=== PATIENT | male | born 1930 | race Asian ===

== ENCOUNTER 2018-05-11 07:53 | Inpatient (IN) | payer OTHER ==
[2018-05-11] MEDS: SOD CHLORIDE 0.9% 1,000 ML IV (08:32)
[2018-05-11 08:39] LABS: ADD MAN DIFF? NO
[2018-05-11 08:41] LABS: WHITE BLOOD COUNT 9.3 10^3/ul (4.8-10.8)
[2018-05-11 08:41] LABS: BASOPHILS % 0.2 % (0.0-2.0); EOSINOPHILS % 0.4 % (0.0-7.0); HEMATOCRIT 30.7 % (42.0-52.0); HEMOGLOBIN 9.9 g/dl (14.0-18.0); LYMPHOCYTES # 1.2 10^3/ul (0.8-2.9); LYMPHOCYTES % 13.1 % (15.0-51.0); MEAN CORPUSCULAR HEMOGLOBIN 27.2 pg (29.0-33.0); MEAN CORPUSCULAR HGB CONC 32.2 g/dl (32.0-37.0); MEAN CORPUSCULAR VOLUME 84.3 fl (82.0-101.0); MEAN PLATELET VOLUME 9.1 fl (7.4-10.4); MONOCYTE # 0.8 10^3/ul (0.3-0.9); MONOCYTES % 8.4 % (0.0-11.0); NEUTROPHIL # 7.2 10^3/ul (1.6-7.5); NEUTROPHILS % 77.3 % (39.0-77.0); PLATELET COUNT 430 10^3/UL (140-415); RED BLOOD COUNT 3.64 10^6/ul (4.70-6.10); RED CELL DISTRIBUTION WIDTH 14.7 % (11.5-14.5)
[2018-05-11 08:57] LABS: ALANINE AMINOTRANSFERASE 28 IU/L (13-69); ALBUMIN 3.2 g/dl (3.3-4.9); ALKALINE PHOSPHATASE 70 IU/L (42-121); ANION GAP 12 (8-16); ASPARTATE AMINO TRANSFERASE 27 IU/L (15-46); BLOOD UREA NITROGEN 20 mg/dl (7-20); CALCIUM 9.1 mg/dl (8.4-10.2); CARBON DIOXIDE 24 mmol/L (21-31); CHLORIDE 101 mmol/L (97-110); CREATININE 0.61 mg/dl (0.61-1.24); GLUCOSE 167 mg/dl (70-220); POTASSIUM 3.8 mmol/L (3.5-5.1); SODIUM 133 mmol/L (135-144); TOTAL PROTEIN 7.2 g/dl (6.1-8.1)
[2018-05-11 09:09] LABS: TROPONIN-I < 0.012 ng/ml (0.000-0.120)
[2018-05-11] MEDS ORDERED: DEXTROSE 50% 50 ML SYRINGE (09:47)
[2018-05-11] MEDS: DEXTROSE 50% 50 ML SYRINGE IV ×2 (09:54→15:03)
[2018-05-11] MEDS: D5W-0.45 NACL + KCL 40 MEQ 1,000 ML IV ×2 (09:54→10:07)
[2018-05-11] MEDS ORDERED: ONDANSETRON 4 MG INJ IV ×2 (15:00→15:30)
[2018-05-11] MEDS ORDERED: ACETAMINOPHEN 325 MG TAB PO ×2 (15:00→15:30)
[2018-05-11] MEDS: DEXTROSE 10% 1,000 ML IV (15:03)
[2018-05-11] MEDS ORDERED: NACL 0.9% 3 ML SYG IV (15:30)
[2018-05-11] MEDS: ATORVASTATIN 40 MG TAB PO (20:55)
[2018-05-11] MEDS: TAMSULOSIN (SR) 0.4 MG CAP PO (20:55)
[2018-05-12] MEDS: DEXTROSE 10% 1,000 ML IV (06:22)
[2018-05-12] MEDS: LEVOTHYROXINE 75 MCG TAB PO (08:30)
[2018-05-12] MEDS: DUTASTERIDE 0.5 MG CAP PO (08:30)
[2018-05-12] MEDS: LISINOPRIL 20 MG TAB PO (08:31)
[2018-05-12] MEDS: VERAPAMIL (SR) 120 MG TAB PO (08:31)
[2018-05-12] MEDS: HYDROCHLOROTHIAZIDE 12.5 MG CAP PO (08:31)
[2018-05-12] MEDS: ENOXAPARIN 40 MG/0.4 ML SYG SC (08:34)
[2018-05-12] MEDS ORDERED: GLUCAGON 1 MG INJ IM (10:30)
[2018-05-12] MEDS ORDERED: GLUCOSE GEL 15 GRAM TUBE BUCCAL (10:30)
[2018-05-12] MEDS ORDERED: MEGESTROL 40 MG TAB PO (10:30)
[2018-05-12] MEDS ORDERED: DEXTROSE 50% 50 ML SYRINGE IV ×2 (10:30)
[2018-05-12] MEDS ORDERED: GLUCOSE GEL 15 GRAM TUBE PO ×2 (10:30)
[2018-05-12 10:46] LABS: ADD MAN DIFF? NO
[2018-05-12 10:53] LABS: WHITE BLOOD COUNT 10.6 10^3/ul (4.8-10.8)
[2018-05-12 10:53] LABS: BASOPHILS % 0.1 % (0.0-2.0); EOSINOPHILS # 0.1 10^3/ul (0.0-0.5); EOSINOPHILS % 0.7 % (0.0-7.0); HEMATOCRIT 33.6 % (42.0-52.0); HEMOGLOBIN 10.9 g/dl (14.0-18.0); LYMPHOCYTES # 1.2 10^3/ul (0.8-2.9); LYMPHOCYTES % 11.6 % (15.0-51.0); MEAN CORPUSCULAR HEMOGLOBIN 26.7 pg (29.0-33.0); MEAN CORPUSCULAR HGB CONC 32.4 g/dl (32.0-37.0); MEAN CORPUSCULAR VOLUME 82.4 fl (82.0-101.0); MEAN PLATELET VOLUME 8.7 fl (7.4-10.4); MONOCYTES % 9.6 % (0.0-11.0); NEUTROPHIL # 8.2 10^3/ul (1.6-7.5); NEUTROPHILS % 77.2 % (39.0-77.0); PLATELET COUNT 464 10^3/UL (140-415); RED BLOOD COUNT 4.08 10^6/ul (4.70-6.10); RED CELL DISTRIBUTION WIDTH 14.8 % (11.5-14.5)
[2018-05-12] MEDS: MEGESTROL (40 MG/ML) 10ML CUP PO ×2 (11:03→21:46)
[2018-05-12 11:10] LABS: ALANINE AMINOTRANSFERASE 27 IU/L (13-69); ALBUMIN 2.8 g/dl (3.3-4.9); ALBUMIN/GLOBULIN RATIO 0.71; ALKALINE PHOSPHATASE 69 IU/L (42-121); ANION GAP 13 (8-16); ASPARTATE AMINO TRANSFERASE 25 IU/L (15-46); BILIRUBIN,INDIRECT 0.1 mg/dl (0-1.1); BILIRUBIN,TOTAL 0.1 mg/dl (0.2-1.3); BLOOD UREA NITROGEN 8 mg/dl (7-20); CALCIUM 8.8 mg/dl (8.4-10.2); CARBON DIOXIDE 26 mmol/L (21-31); CHLORIDE 99 mmol/L (97-110); CREATININE 0.56 mg/dl (0.61-1.24); GLUCOSE 159 mg/dl (70-220); MAGNESIUM 1.2 mg/dl (1.7-2.5); POTASSIUM 4.6 mmol/L (3.5-5.1); SODIUM 133 mmol/L (135-144); TOTAL PROTEIN 6.7 g/dl (6.1-8.1)
[2018-05-12 11:26] LABS: FREE THYROXINE INDEX (Calc) 3.97 ug/ml (0.65-3.89); T3 UPTAKE 44.6 % (23.5-40.5); T4 (THYROXINE) 8.9 ug/dl (5.5-11.0)
[2018-05-12 11:39] LABS: THYROID STIMULATING HORMONE 0.128 MIU/L (0.465-4.680)
[2018-05-12 13:35] LABS: ADD UMIC NO; UR ASCORBIC ACID NEGATIVE (NEGATIVE); UR BILIRUBIN (Dip) NEGATIVE (NEGATIVE); UR BLOOD (Dip) NEGATIVE (NEGATIVE); UR CLARITY CLEAR (CLEAR); UR COLOR YELLOW (YELLOW); UR GLUCOSE (Dip) NEGATIVE (NEGATIVE); UR KETONES (Dip) NEGATIVE (NEGATIVE); UR LEUKOCYTE ESTERASE (Dip) NEGATIVE Leu/ul (NEGATIVE); UR NITRITE (Dip) NEGATIVE (NEGATIVE); UR SPECIFIC GRAVITY (Dip) 1.009 (1.003-1.030); UR TOTAL PROTEIN (Dip) NEGATIVE (NEGATIVE); UR UROBILINOGEN (Dip) NEGATIVE (NEGATIVE)
[2018-05-12] MEDS: SOD CHLORIDE 0.9% 100 ML (15:51)
[2018-05-12] MEDS: IOHEXOL 300MG/ML 150 ML BTL (15:51)
[2018-05-12] MEDS: MAGNESIUM SULFATE 3 GM in DEXTROSE 5% 100 ML IVPB (17:08)
[2018-05-12] MEDS: ATORVASTATIN 40 MG TAB PO (21:47)
[2018-05-12] MEDS: TAMSULOSIN (SR) 0.4 MG CAP PO (21:47)
[2018-05-13] MEDS: ACCU-CHEK XX ×6 (01:00→21:00)
[2018-05-13] MEDS ORDERED: ACCU-CHEK XX (02:00)
[2018-05-13] MEDS: DEXTROSE 10% 1,000 ML IV (03:26)
[2018-05-13 05:49] LABS: ADD MAN DIFF? NO
[2018-05-13 05:57] LABS: BASOPHILS % 0.1 % (0.0-2.0); EOSINOPHILS % 0.3 % (0.0-7.0); HEMATOCRIT 32.5 % (42.0-52.0); HEMOGLOBIN 10.9 g/dl (14.0-18.0); LYMPHOCYTES % 7.9 % (15.0-51.0); MEAN CORPUSCULAR HGB CONC 33.5 g/dl (32.0-37.0); MEAN CORPUSCULAR VOLUME 80.4 fl (82.0-101.0); MEAN PLATELET VOLUME 9.3 fl (7.4-10.4); MONOCYTE # 1.2 10^3/ul (0.3-0.9); MONOCYTES % 9.3 % (0.0-11.0); NEUTROPHIL # 10.1 10^3/ul (1.6-7.5); NEUTROPHILS % 81.8 % (39.0-77.0); PLATELET COUNT 503 10^3/UL (140-415); RED BLOOD COUNT 4.04 10^6/ul (4.70-6.10); RED CELL DISTRIBUTION WIDTH 14.6 % (11.5-14.5)
[2018-05-13 05:57] LABS: WHITE BLOOD COUNT 12.3 10^3/ul (4.8-10.8)
[2018-05-13 06:12] LABS: HEMOGLOBIN A1C 6.6 % (0-5.9)
[2018-05-13 06:31] LABS: ANION GAP 11 (8-16); BLOOD UREA NITROGEN 8 mg/dl (7-20); CALCIUM 8.6 mg/dl (8.4-10.2); CARBON DIOXIDE 23 mmol/L (21-31); CHLORIDE 95 mmol/L (97-110); CREATININE 0.75 mg/dl (0.61-1.24); GLUCOSE 203 mg/dl (70-220); SODIUM 125 mmol/L (135-144)
[2018-05-13 06:43] LABS: AMPHETAMINE/METHAMPHETAMINE Negative (NEGATIVE); BARBITURATES Negative (NEGATIVE); BENZODIAZEPINES Negative (NEGATIVE); CANNABINOIDS Negative (NEGATIVE); COCAINE Negative (NEGATIVE); OPIATES Negative (NEGATIVE)
[2018-05-13] MEDS: LEVOTHYROXINE 75 MCG TAB PO (07:18)
[2018-05-13 08:32] LABS: CARCINOEMBRYONIC ANTIGEN 2.9 ng/ml (0.0-5.0)
[2018-05-13] MEDS: VERAPAMIL (SR) 120 MG TAB PO (09:35)
[2018-05-13] MEDS: DUTASTERIDE 0.5 MG CAP PO (09:35)
[2018-05-13] MEDS: HYDROCHLOROTHIAZIDE 12.5 MG CAP PO (09:36)
[2018-05-13] MEDS: LISINOPRIL 20 MG TAB PO (09:36)
[2018-05-13] MEDS: ENOXAPARIN 40 MG/0.4 ML SYG SC (09:38)
[2018-05-13] MEDS: MEGESTROL (40 MG/ML) 10ML CUP PO ×2 (09:39→21:23)
[2018-05-13] MEDS: TAMSULOSIN (SR) 0.4 MG CAP PO (21:24)
[2018-05-13] MEDS: ATORVASTATIN 40 MG TAB PO (21:24)
[2018-05-14] MEDS: ACCU-CHEK XX ×6 (01:00→20:48)
[2018-05-14] MEDS: LEVOTHYROXINE 75 MCG TAB PO (06:09)
[2018-05-14 06:18] LABS: ADD MAN DIFF? NO
[2018-05-14 06:32] LABS: BASOPHILS % 0.2 % (0.0-2.0); EOSINOPHILS # 0.2 10^3/ul (0.0-0.5); EOSINOPHILS % 1.7 % (0.0-7.0); HEMOGLOBIN 9.7 g/dl (14.0-18.0); LYMPHOCYTES # 1.5 10^3/ul (0.8-2.9); LYMPHOCYTES % 11.7 % (15.0-51.0); MEAN CORPUSCULAR HEMOGLOBIN 27.2 pg (29.0-33.0); MEAN CORPUSCULAR HGB CONC 33.4 g/dl (32.0-37.0); MEAN CORPUSCULAR VOLUME 81.2 fl (82.0-101.0); MONOCYTE # 1.4 10^3/ul (0.3-0.9); MONOCYTES % 10.4 % (0.0-11.0); NEUTROPHIL # 9.8 10^3/ul (1.6-7.5); NEUTROPHILS % 75.3 % (39.0-77.0); NUCLEATED RED BLOOD CELLS% 0.2 /100WBC (0.0-0.0); PLATELET COUNT 463 10^3/UL (140-415); RED BLOOD COUNT 3.57 10^6/ul (4.70-6.10); RED CELL DISTRIBUTION WIDTH 14.8 % (11.5-14.5)
[2018-05-14 07:34] LABS: ANION GAP 11 (8-16); BLOOD UREA NITROGEN 15 mg/dl (7-20); CALCIUM 8.2 mg/dl (8.4-10.2); CARBON DIOXIDE 23 mmol/L (21-31); CHLORIDE 94 mmol/L (97-110); CREATININE 1.31 mg/dl (0.61-1.24); GLUCOSE 130 mg/dl (70-220); POTASSIUM 4.4 mmol/L (3.5-5.1); SODIUM 124 mmol/L (135-144)
[2018-05-14] MEDS: HYDROCHLOROTHIAZIDE 12.5 MG CAP PO (08:38)
[2018-05-14] MEDS: LISINOPRIL 20 MG TAB PO (08:38)
[2018-05-14] MEDS: VERAPAMIL (SR) 120 MG TAB PO (08:39)
[2018-05-14] MEDS: MEGESTROL (40 MG/ML) 10ML CUP PO ×2 (08:39→20:47)
[2018-05-14] MEDS: DUTASTERIDE 0.5 MG CAP PO (08:39)
[2018-05-14] MEDS: ENOXAPARIN 40 MG/0.4 ML SYG SC (08:40)
[2018-05-14] MEDS: SOD CHLORIDE 0.9% 1,000 ML IV (14:42)
[2018-05-14] MEDS: SODIUM CHLORIDE 1 GM TAB PO ×2 (18:49→20:48)
[2018-05-14] MEDS: ATORVASTATIN 40 MG TAB PO (20:48)
[2018-05-14] MEDS: TAMSULOSIN (SR) 0.4 MG CAP PO (20:48)
[2018-05-15] MEDS: ACCU-CHEK XX ×6 (01:00→20:58)
[2018-05-15 05:34] LABS: ADD MAN DIFF? NO
[2018-05-15 05:39] LABS: BASOPHILS % 0.2 % (0.0-2.0); EOSINOPHILS # 0.3 10^3/ul (0.0-0.5); EOSINOPHILS % 1.9 % (0.0-7.0); HEMOGLOBIN 10.3 g/dl (14.0-18.0); LYMPHOCYTES # 1.5 10^3/ul (0.8-2.9); LYMPHOCYTES % 10.8 % (15.0-51.0); MEAN CORPUSCULAR HEMOGLOBIN 26.6 pg (29.0-33.0); MEAN CORPUSCULAR HGB CONC 33.2 g/dl (32.0-37.0); MEAN CORPUSCULAR VOLUME 80.1 fl (82.0-101.0); MEAN PLATELET VOLUME 9.1 fl (7.4-10.4); MONOCYTE # 1.5 10^3/ul (0.3-0.9); MONOCYTES % 10.8 % (0.0-11.0); NEUTROPHIL # 10.3 10^3/ul (1.6-7.5); NEUTROPHILS % 75.6 % (39.0-77.0); PLATELET COUNT 435 10^3/UL (140-415); RED BLOOD COUNT 3.87 10^6/ul (4.70-6.10); RED CELL DISTRIBUTION WIDTH 15.5 % (11.5-14.5)
[2018-05-15 05:39] LABS: WHITE BLOOD COUNT 13.7 10^3/ul (4.8-10.8)
[2018-05-15 05:57] LABS: IRON 30 ug/dl (35-150)
[2018-05-15 06:00] LABS: ANION GAP 11 (8-16); BLOOD UREA NITROGEN 22 mg/dl (7-20); CALCIUM 8.5 mg/dl (8.4-10.2); CARBON DIOXIDE 24 mmol/L (21-31); CHLORIDE 97 mmol/L (97-110); CREATININE 1.34 mg/dl (0.61-1.24); GLUCOSE 135 mg/dl (70-220); POTASSIUM 4.6 mmol/L (3.5-5.1); SODIUM 127 mmol/L (135-144)
[2018-05-15 06:06] LABS: % IRON SATURATION 14 % SAT (22-52); TOTAL IRON BINDING CAPACITY 214 ug/dl (241-421)
[2018-05-15] MEDS: LEVOTHYROXINE 75 MCG TAB PO (07:10)
[2018-05-15] MEDS: SODIUM CHLORIDE 1 GM TAB PO ×3 (08:53→20:59)
[2018-05-15] MEDS: MEGESTROL (40 MG/ML) 10ML CUP PO ×2 (08:53→20:59)
[2018-05-15] MEDS: DUTASTERIDE 0.5 MG CAP PO (08:53)
[2018-05-15] MEDS: VERAPAMIL (SR) 120 MG TAB PO (08:54)
[2018-05-15] MEDS: LISINOPRIL 20 MG TAB PO (08:54)
[2018-05-15] MEDS: ENOXAPARIN 40 MG/0.4 ML SYG SC (08:58)
[2018-05-15 12:41] LABS: PROTEIN/CREAT RATIO 0.31 RATIO
[2018-05-15 12:44] LABS: CREATININE,URINE RANDOM 42.26 mg/dl (20-370)
[2018-05-15 12:44] LABS: SODIUM,URINE RANDOM 28 mmol/L (30-90)
[2018-05-15] MEDS: SOD FERRIC GLUC COMPLX 125 MG in SOD CHLORIDE 0.9% 100 ML IVPB (18:11)
[2018-05-15] MEDS: ATORVASTATIN 40 MG TAB PO (20:59)
[2018-05-15] MEDS: TAMSULOSIN (SR) 0.4 MG CAP PO (20:59)
[2018-05-16] MEDS: ACCU-CHEK XX ×4 (01:11→13:00)
[2018-05-16 06:00] LABS: ADD MAN DIFF? NO
[2018-05-16 06:03] LABS: BASOPHILS % 0.2 % (0.0-2.0); EOSINOPHILS # 0.3 10^3/ul (0.0-0.5); EOSINOPHILS % 2.1 % (0.0-7.0); HEMATOCRIT 31.6 % (42.0-52.0); HEMOGLOBIN 10.3 g/dl (14.0-18.0); LYMPHOCYTES # 1.4 10^3/ul (0.8-2.9); LYMPHOCYTES % 11.1 % (15.0-51.0); MEAN CORPUSCULAR HEMOGLOBIN 26.6 pg (29.0-33.0); MEAN CORPUSCULAR HGB CONC 32.6 g/dl (32.0-37.0); MEAN CORPUSCULAR VOLUME 81.7 fl (82.0-101.0); MEAN PLATELET VOLUME 9.1 fl (7.4-10.4); MONOCYTE # 1.4 10^3/ul (0.3-0.9); MONOCYTES % 11.2 % (0.0-11.0); NEUTROPHILS % 74.4 % (39.0-77.0); PLATELET COUNT 444 10^3/UL (140-415); RED BLOOD COUNT 3.87 10^6/ul (4.70-6.10); RED CELL DISTRIBUTION WIDTH 16.3 % (11.5-14.5)
[2018-05-16 06:03] LABS: WHITE BLOOD COUNT 12.2 10^3/ul (4.8-10.8)
[2018-05-16 06:56] LABS: ANION GAP 12 (8-16); BLOOD UREA NITROGEN 23 mg/dl (7-20); CARBON DIOXIDE 27 mmol/L (21-31); CHLORIDE 101 mmol/L (97-110); CREATININE 1.01 mg/dl (0.61-1.24); GLUCOSE 140 mg/dl (70-220); POTASSIUM 4.3 mmol/L (3.5-5.1); SODIUM 136 mmol/L (135-144)
[2018-05-16] MEDS: SODIUM CHLORIDE 1 GM TAB PO (08:26)
[2018-05-16] MEDS: ENOXAPARIN 40 MG/0.4 ML SYG SC (08:26)
[2018-05-16] MEDS: DUTASTERIDE 0.5 MG CAP PO (08:26)
[2018-05-16] MEDS: MEGESTROL (40 MG/ML) 10ML CUP PO (08:26)
[2018-05-16] MEDS: VERAPAMIL (SR) 120 MG TAB PO (08:27)
== END 2018-05-16 13:15 | disposition home health service (06) | DRG 638 ==
LOC: E/R 07:53 → MS1 05-12 16:10 → 2NE 14:33 → ICU 17:34
PROVIDERS: Internal Medicine
DX: E11.649 Type 2 diabetes mellitus with hypoglycemia without coma (principal); E87.1 Hypo-osmolality and hyponatremia; N17.9 Acute kidney failure, unspecified; J98.4 Other disorders of lung; R63.0 Anorexia; E03.9 Hypothyroidism, unspecified; D50.9 Iron deficiency anemia, unspecified; K82.8 Other specified diseases of gallbladder; T38.3X5A Adverse effect of insulin and oral hypoglycemic [antidiabetic] drugs, initial encounter; Y92.019 Unspecified place in single-family (private) house as the place of occurrence of the external cause; Z68.20 Body mass index [BMI] 20.0-20.9, adult; Z79.4 Long term (current) use of insulin; Z86.11 Personal history of tuberculosis
CPT/HCPCS: 36415; 70450; 71045; 71260; 76700; 80048; 80053; 80307; 81003; 82378; 82570; 82962; 83036; 83540; 83735; 84155; 84300; 84436; 84443; 84479; 84484; 85025; 86301; 87081; 93005; 96365; 96366; 96375; 97116; 97161; 97530; 99291-25